=== PATIENT | male | born 1950 | race Caucasian/White ===

== ENCOUNTER → 2016-08-01 | Outpatient (CLI) | payer OTHER ==
[~2016-08-01] MED LIST: ASPIR-LOW81 MG PO; ASPIRIN81 M2 PO; Aspirin E.C. PO; CELEBREX200 MG PO; CELECOXIB200 MG PO; CRESTOR20 MG PO; Cozaar PO; DEXILANT60 MG PO; DOK PLUS TABLE1 EACH PO; ENDOCET 5-3251 EACH PO; Hyzaar 50-12.5 PO; KAPIDEX60 MG PO; LOSARTAN-HCTZ1 EAC2 PO; Lopressor PO; METOPROLOL TART50 MG PO; NAPROSYN500 MG PO; PAXIL20 MG PO; PLAVIX75 MG PO; Paxil PO; Percocet 5/325,Endoc PO; Plavix PO; Senokot S,Pericolace PO; Toprol XL PO; Vicodin,Norco 5/325 PO
== END | disposition home or self-care (01) ==
LOC: NUC 08:37
DX: R07.81 Pleurodynia (principal)
CPT/HCPCS: 78315; A9503

== ENCOUNTER 2017-06-06 02:21 | Emergency (ER) | payer OTHER ==
[~2017-06-06] VITALS: Ht 182.9 cm; Wt 123.4 kg
[2017-06-06 04:36] LABS: APPEARANCE SL.HAZY ((CLEAR)); BILIRUBIN NEGATIVE; BLOOD MODERATE; COLOR AMBER ((YELLOW)); GLUCOSE (STRIP) NEGATIVE; KETONES NEGATIVE; LEUKOCYTES TRACE; NITRITE NEGATIVE; PROTEIN (STRIP) 30; SPECIFIC GRAVITY 1.026 (1.000-1.030)
[2017-06-06 05:05] LABS: BACTERIA RARE /HPF; EPITHELIAL CELLS RARE /HPF; MUCUS 3+ /LPF; RED BLOOD CELLS 0-5 /HPF (0-5); UCUL ADDED? YES
[2017-06-06] MEDS ORDERED: LEVAQUIN750 MG PO (05:53)
[2017-06-06 06:15] VITALS: BP 127/59
== END 2017-06-06 06:17 | disposition home or self-care (01) ==
LOC: EME 02:21
PROVIDERS: Emergency Medicine
DX: N50.3 Cyst of epididymis (principal); N45.1 Epididymitis; N43.3 Hydrocele, unspecified; I10 Essential (primary) hypertension; Z86.73 Personal history of transient ischemic attack (TIA), and cerebral infarction without residual deficits; Z79.02 Long term (current) use of antithrombotics/antiplatelets; F17.200 Nicotine dependence, unspecified, uncomplicated
CPT/HCPCS: 76870; 81003; 87086; 99281; 99284